=== PATIENT | male | born 1940 | race Caucasian/White ===

== ENCOUNTER 2016-05-27 11:48 | Observation (INO) | payer MEDICARE ==
[2016-05-27] VITALS (9 sets, daily range): BP systolic 105–151; BP diastolic 55–78; PULSE 67–92; RESP 18–20; TEMP 97.4–98.1; O2SAT 93–98
[~2016-05-27] VITALS: Ht 177.8 cm; Wt 88.0 kg
[~2016-05-27 11:48] MED LIST: ASPI81TA82 PO; CLOP75TA PO; COZA50TA PO; CRES10TA PO; EZET10 PO; FURO40TA PO; LASI20TA PO; METO50CR PO; NITR0.4D2 TD; POTA-267 PO; POTA10TA2 PO; RANE1000 PO; SPIR25TA PO
[2016-05-27] MEDS ORDERED: SODIUM CHLOR 0.9% 1000 ML INJ 1,000 ML IV ONE (12:08)
[2016-05-27] MEDS ORDERED: ASPIRIN 81 MG CHEW TAB PO STA (12:08)
[2016-05-27] MEDS ORDERED: SODIUM CHLORIDE 0.9% FLUSH 5 ML FLUSH IVF PRN (12:15)
--- NOTE | 2016-05-27 12:18 | PD ---
HPI Chief Complaint: Cardiac Complaint Time Seen by Provider: 11:57 Travel History International Travel<30 days: No Contact w/Intl Traveler<30days: No History of Present Illness HPI Patient is a 76-year-old male with history of coronary disease, history of triple bypass surgery greater than 30 years ago as well as 5 coronary stents placed, presents to emergency room with complaints of syncopal episode. Patient reports that he woke up this morning and felt fine, reports he had his breakfast and his coffee, reports that all of a sudden, he felt a pain to his chest and felt light headed and dizzy and reports that the next thing he remembers is that he was on the floor,. Patient thinks that his AICD may have gone off, patient is not sure. Patient reports that he got up from the floor and went to his neighbor's house and asked her to call for help. Patient has a [employer] AICD model no. [id number], serial number [id number] Patient's behavior specialist is Dr. Patt Roblse MD with [facility] Past Medical History Cardiac Catheterization: Yes High Cholesterol: Yes Congestive Heart Failure: Yes Coronary Artery Disease: Yes Hypertension: Yes Myocardial Infarction: Yes Past Surgical History AICD: Yes Cardiac Surgery: Yes (PACEMAKER/DEFIB) Coronary Artery Bypass Graft: Yes (TRIPLE) Coronary Stent: Yes (5 STENTS) Pacemaker: Yes Social History Alcohol Use: Yes (2-3 GLASSES OF WINE WEEK AND 1 MIXED DRINK) Tobacco Use: No Substance Use: No Allergies-Medications (Allergen,Severity, Reaction): Coded Allergies: No Known Allergies (Unverified , 07/08/13) Patient is allergic to a drug that 'starts with an S' Reported Meds & Prescriptions Reported Meds & Active Scripts Active Lasix (Furosemide) 20 Mg Tab 1 Tab PO BID Reported Crestor (Rosuvastatin Calcium) 10 Mg Tab 10 Mg PO HS Furosemide 40 Mg Tab 40 Mg PO DAILY Potassium Chloride Er (Potassium Chloride) 10 Meq Tab 10 Meq PO DAILY Klor-Con 10 (Potassium Chloride) 10 Meq Tab 10 Meq PO DAILY PRN Spironolactone 25 Mg Tab 12.5 Mg PO DAILY Ranexa (Ranolazine) 1,000 Mg Tab 1,000 Mg PO Q12 Cozaar (Losartan Potassium) 50 Mg Tab 25 Mg PO DAILY Clopidogrel (Clopidogrel Bisulfate) 75 Mg Tab 75 Mg PO DAILY Metoprolol Succinate Er (Metoprolol Succinate) 50 Mg Tab 50 Mg PO DAILY Zetia (Ezetimibe) 10 Mg Tab 10 Mg PO DAILY Nitroglycerin Transdermal (Nitroglycerin) 0.4 Mg/Hr Dis 0.2 Mg TD DAILY Aspir-81 (Aspirin) 81 Mg Tab 81 Mg PO DAILY Review of Systems General / Constitutional: No: Fever Eyes: No: Visual changes HENT: No: Headaches Cardiovascular: Positive: Chest Pain or Discomfort, Syncope Respiratory: No: Shortness of Breath Gastrointestinal: No: Abdominal Pain Genitourinary: No: Dysuria Musculoskeletal: No: Pain Skin: No Rash Neurologic: Positive: Dizziness, No: Weakness Psychiatric: No: Depression Endocrine: No: Polydipsia Hematologic/Lymphatic: No: Easy Bruising Physical Exam Narrative GENERAL: mild distress SKIN: Warm and dry. HEAD: Patient with contusion to forehead. Normocephalic. EYES: Pupils equal and round. No scleral icterus. No injection or drainage. ENT: No nasal bleeding or discharge. Mucous membranes pink and moist. NECK: Trachea midline. No JVD. CARDIOVASCULAR: Regular rate and rhythm. 3/6 systolic murmur RESPIRATORY: No accessory muscle use. Clear to auscultation. Breath sounds equal bilaterally. GASTROINTESTINAL: Abdomen soft, non-tender, nondistended. Hepatic and splenic margins not palpable. MUSCULOSKELETAL: No obvious deformities. No clubbing. No cyanosis. No edema. NEUROLOGICAL: Awake and alert. No obvious cranial nerve deficits. Motor grossly within normal limits. Normal speech. PSYCHIATRIC: Appropriate mood and affect; insight and judgment normal. Data Data Last Documented VS Vital Signs Date Time Temp Pulse Resp B/P Pulse Ox O2 Delivery O2 Flow Rate FiO2 05/27/16 12:19 98 Nasal Cannula 2.00 05/27/16 12:13 85 18 05/27/16 12:05 98.1 134/75 Orders Electrocardiogram (05/27/16 ) Troponin I (05/27/16 12:08) Ckmb (Isoenzyme) Profile (05/27/16 12:08) Complete Blood Count With Diff (05/27/16 12:08) I-Stat Profile (05/27/16 12:08) I-Stat Creatinine (05/27/16 12:08) Calcium (05/27/16 12:08) Magnesium (Mg) (05/27/16 12:08) Prothrombin Time / Inr (Pt) (05/27/16 12:08) Act Partial Throm Time (Ptt) (05/27/16 12:08) B-Type Natriuretic Peptide (05/27/16 12:08) Chest, Single Ap (05/27/16 12:08) Electrocardiogram (05/27/16 12:08) Oxygen Administration (05/27/16 12:08) Iv Access Insert/Monitor (05/27/16 12:08) Oximetry (05/27/16 12:08) Sodium Chlor 0.9% 1000 Ml Inj (Ns 1000 M (05/27/16 12:08) Sodium Chloride 0.9% Flush (Ns Flush) (05/27/16 12:15) Aspirin Chew (Aspirin Chew) (05/27/16 12:08) Ct Brain W/O Iv Contrast(Rout) (05/27/16 ) Heparin-Ns/Pf Inj (Heparin-Ns/Pf Inj) (05/27/16 12:21) CKMB (05/27/16 12:12) CKMB% (05/27/16 12:12) Labs Laboratory Tests Test 05/27/16 12:12 White Blood Count 9.2 TH/MM3 Red Blood Count 3.97 MIL/MM3 Hemoglobin 12.5 GM/DL Bedside Hemoglobin 11.9 G/DL Hematocrit 35.5 % Bedside Hematocrit 35.0 % Mean Corpuscular Volume 89.6 FL Mean Corpuscular Hemoglobin 31.6 PG Mean Corpuscular Hemoglobin 35.3 % Concent Red Cell Distribution Width 14.0 % Platelet Count 228 TH/MM3 Mean Platelet Volume 8.6 FL Neutrophils (%) (Auto) 70.8 % Lymphocytes (%) (Auto) 22.2 % Monocytes (%) (Auto) 4.7 % Eosinophils (%) (Auto) 1.7 % Basophils (%) (Auto) 0.6 % Neutrophils # (Auto) 6.5 TH/MM3 Lymphocytes # (Auto) 2.0 TH/MM3 Monocytes # (Auto) 0.4 TH/MM3 Eosinophils # (Auto) 0.2 TH/MM3 Basophils # (Auto) 0.1 TH/MM3 CBC Comment AUTO DIFF Differential Total Cells 100 Counted Neutrophils % (Manual) 62 % Band Neutrophils % 2 % Lymphocytes % 25 % Monocytes % 9 % Eosinophils % 1 % Neutrophils # (Manual) 6.0 TH/MM3 Metamyelocytes 1 % Differential Comment FINAL DIFF MANUAL Platelet Estimate NORMAL Platelet Morphology Comment NORMAL Red Cell Morphology Comment NORMAL Prothrombin Time 23.2 SEC Prothromb Time International 2.0 RATIO Ratio Activated Partial 32.3 SEC Thromboplast Time Bedside Sodium 137 MMOL/L Bedside Potassium 4.3 MMOL/L Bedside Chloride 100 MMOL/L Bedside Blood Urea Nitrogen 20 MG/DL Bedside Creatinine 1.0 MG/DL Bedside Glucose 128 MG/DL Calcium Level 9.0 MG/DL Magnesium Level 2.5 MG/DL Total Creatine Kinase 146 U/L Creatine Kinase MB 1.6 NG/ML Troponin I 0.07 NG/ML B-Type Natriuretic Peptide 139 PG/ML MDM Medical Decision Making Medical Screen Exam Complete: Yes Emergency Medical Condition: Yes Interpretation(s) ekg at 1203: paced at 88bpm Differential Diagnosis ACS, unstable angina, electrolyte abnormality, intracranial hemorrhage, pneumothorax Narrative Course Pt's son phone number: Larry Ga: [phone] Patient is a 76-year-old male who presents to emergency room with syncopal episode. Patient reports that he was at home today, reports that he felt of pain to his chest and felt light headed and dizzy and then "passed out." When patient awoken, pt walked to his neighbors home and she brought him to ER. Pt with concerning story for STEMI - EKG paced but with ST seg elevation II, III , AVF, and Lateral leads, STEMI alert called overhead. Discussed case with Dr. Banks, does not think that this is a STEMI, request call to patients behavior specialist. Case was reviewed with pt's behavior specialist, does not think pt is having a stemi, pt currently asymptomatic. Plan to perform cardiac workup for patient and admit to medicine service. Pt's behavior specialist will have his partner see pt as consult case reviewed with dr ruiz who accepts pt to service Diagnosis Primary Impression: Syncope and collapse Additional Impression: fall on coumadin Jody Boyce DO May 27, 2016 12:18
[2016-05-27] MEDS ORDERED: HEPARIN-NS/PF INJ 500 ML ONE (12:21)
[2016-05-27 12:28] LABS: I-STAT POTASSIUM 4.3 MMOL/L (3.5-4.9); I-STAT SODIUM 137 MMOL/L (138-146)
[2016-05-27 12:29] LABS: AUTOMATED NEUTROPHIL # 6.5 TH/MM3 (1.8-7.7); BASOPHIL # 0.1 TH/MM3 (0-0.2); BASOPHIL % 0.6 % (0.0-2.0); EOSINOPHIL # 0.2 TH/MM3 (0-0.4); EOSINOPHIL % 1.7 % (0.0-4.0); HEMATOCRIT 35.5 % (39.0-51.0); LYMPH % 22.2 % (9.0-44.0); MEAN CELL VOLUME 89.6 FL (80.0-100.0); MEAN CORPUSCULAR HEMOGLOBIN 31.6 PG (27.0-34.0); MEAN CORPUSCULAR HGB CONC 35.3 % (32.0-36.0); MONO % 4.7 % (0.0-8.0); NEUT % 70.8 % (16.0-70.0); PLATELET COUNT 228 TH/MM3 (150-450); RED BLOOD COUNT 3.97 MIL/MM3 (4.50-5.90); WHITE BLOOD COUNT 9.2 TH/MM3 (4.0-11.0)
--- NOTE | 2016-05-27 12:29 | RADRPT ---
EXAM DATE/TIME: 05/27/2016 12:14 [facility] COMPARISON: CHEST SINGLE AP, July 08, 2013, 10:46. INDICATIONS : Stemi alert. MEDICAL HISTORY : Hypertension. Congestive heart failure. Myocardial infarction. CAD. SURGICAL HISTORY : Pacemaker. CABG. 5 Stents. ENCOUNTER: Initial ACUITY: 1 day PAIN SCORE: Non-responsive. LOCATION: Bilateral chest FINDINGS: Pacemaker overlies left hemithorax with evidence of prior median sternotomy cardiac surgery and left ventricular cardiomegaly with atherosclerotic changes aorta which appears to be compensated. Vascular ity is distinct with no acute cardiopulmonary process. CONCLUSION: No acute disease. Adrián Mccollum MD on May 27, 2016 at 12:27 Board Certified Radiologist. This report was verified electronically.
[2016-05-27 12:38] LABS: HEMO FLAGS AUTO DIFF
[2016-05-27 12:39] LABS: APTT (PATIENT) 32.3 SEC (24.3-30.1); PROTHROMBIN TIME - PATIENT 23.2 SEC (9.8-11.6)
[2016-05-27 12:54] LABS: CREATINE KINASE 146 U/L (39-308); MAGNESIUM 2.5 MG/DL (1.5-2.5)
--- NOTE | 2016-05-27 13:06 | RADRPT ---
EXAM DATE/TIME: 05/27/2016 12:52 [facility] COMPARISON: No previous studies available for comparison. INDICATIONS : Syncope. RADIATION DOSE: 56.35 CTDIvol (mGy) MEDICAL HISTORY : Hypertension. SURGICAL HISTORY : None. ENCOUNTER: Initial ACUITY: 1 day PAIN SCALE: 2/10 LOCATION: cranial TECHNIQUE: Multiple contiguous axial images were obtained of the head. Using automated exposure control and adj ustment of the mA and/or kV according to patient size, radiation dose was kept as low as reasonably a chievable to obtain optimal diagnostic quality images. FINDINGS: CEREBRUM: The ventricles are normal for age. No evidence of midline shift, mass lesion, hemorrhage or acute in farction. No extra-axial fluid collections are seen. POSTERIOR FOSSA: The cerebellum and brainstem are intact. The 4th ventricle is midline. The cerebellopontine angle i s unremarkable. Minimal age-appropriate microvascular ischemic deep white matter demyelinization. EXTRACRANIAL: The visualized portion of the orbits is intact. Vascular calcifications of the internal carotid sipho n and vertebral arteries at the foramen. SKULL: The calvaria is intact. No evidence of skull fracture. CONCLUSION: Normal examination for a patient of this age. Adrián Mccollum MD on May 27, 2016 at 13:03 Board Certified Radiologist. This report was verified electronically.
[2016-05-27 13:07] LABS: CKMB 1.6 NG/ML (0.5-3.6)
[2016-05-27 13:11] LABS: BANDS 2 % (0-6); EOSINOPHILS 1 % (0-4); METAMYELOCYTES 1 % (0-1); POLYS (SEG NEUTROPHILS) 62 % (16-70); WBC DIFF SAMPLE 100
[2016-05-27 13:12] LABS: PLATELET ESTIMATE SMEAR NORMAL (NORMAL); PLATELET MORPHOLOGY NORMAL (NORMAL)
[2016-05-27 13:13] LABS: SCAN/DIFF FINAL DIFF MANUAL
[2016-05-27] MEDS ORDERED: ENALAPRILAT 1.25 MG/ML VIAL IV PUSH PRN (14:45)
[2016-05-27] MEDS ORDERED: RESP: ALBUTEROL 2.5 MG/IPRATROPIUM 0.5 MG NEB (PRN) NEB (14:45)
[2016-05-27] MEDS ORDERED: ONDANSETRON HCL 4 MG/2 ML VIAL IVP PRN (14:45)
[2016-05-27] MEDS ORDERED: SENNOSIDES 8.6 MG TAB PO PRN (14:45)
[2016-05-27] MEDS ORDERED: SODIUM CHLORIDE 0.9% FLUSH 5 ML FLUSH FLUSH PRN (14:45)
[2016-05-27] MEDS ORDERED: NALOXONE HCL 0.4 MG/ML AMP IV PRN (14:45)
[2016-05-27] MEDS ORDERED: ACETAMINOPHEN 325 MG TAB PO PRN ×2 (14:45)
[2016-05-27] MEDS ORDERED: RANE1000 PO (14:52)
[2016-05-27] MEDS ORDERED: FURO1TAB60 PO (14:52)
[2016-05-27] MEDS ORDERED: POTA10CA PO (14:56)
[2016-05-27] MEDS ORDERED: METO50TA PO (14:56)
[2016-05-27] MEDS ORDERED: ROSU10 PO (14:56)
[2016-05-27] MEDS ORDERED: ZETI10TA5 PO (14:56)
[2016-05-27] MEDS ORDERED: WARF4TAB52 PO (14:56)
[2016-05-27] MEDS ORDERED: COZA25TA PO (14:56)
[2016-05-27] MEDS ORDERED: ASPI81CH CHEW (14:56)
[2016-05-27] MEDS ORDERED: SPIR25TA PO (14:56)
[2016-05-27] MEDS ORDERED: WARF-18 PO (14:57)
--- NOTE | 2016-05-27 15:01 | HHI.HP ---
[facility] Unknown Admission Diagnosis Syncope Diagnoses: (1) Syncope and collapse Chief Complaint: Syncope Travel History International Travel<30 Days: No Contact w/Intl Traveler <30 Da: No Traveled to Known Affected Are: No History of Present Illness 76 year-old male with a past medical history of CAD, triple bypass was brought to the emergency department for evaluation of a syncopal episode with collapse which occurred today and lasted possible 5 minutes. Patient states, he had no complaint early this morning when workup, had his breakfast and coffee however as was walking through the TV he felt dizzy lightheadedness and passed out. Patient isn't sure if his AICD when off. Then when patient got off the floor he walked was neighbor's house who called for help. He has no chest pain Review of Systems Other Other 12 systems reviewed and are negative except for the one mentioned in the history of present illness Past Family Social History Past Medical History Cardiac Catheterization: Yes High Cholesterol: Yes Congestive Heart Failure: Yes Coronary Artery Disease: Yes Hypertension: Yes Myocardial Infarction: Yes Past Surgical History AICD: Yes Cardiac Surgery: Yes (PACEMAKER/DEFIB) Coronary Artery Bypass Graft: Yes (TRIPLE) Coronary Stent: Yes (5 STENTS) Pacemaker: Yes Reported Medications Crestor (Rosuvastatin Calcium) 10 Mg Tab 10 Mg PO HS Furosemide 40 Mg Tab 40 Mg PO DAILY Potassium Chloride Er (Potassium Chloride) 10 Meq Tab 10 Meq PO DAILY Klor-Con 10 (Potassium Chloride) 10 Meq Tab 10 Meq PO DAILY PRN Spironolactone 25 Mg Tab 12.5 Mg PO DAILY Ranexa (Ranolazine) 1,000 Mg Tab 1,000 Mg PO Q12 Cozaar (Losartan Potassium) 50 Mg Tab 25 Mg PO DAILY Clopidogrel (Clopidogrel Bisulfate) 75 Mg Tab 75 Mg PO DAILY Metoprolol Succinate Er (Metoprolol Succinate) 50 Mg Tab 50 Mg PO DAILY Zetia (Ezetimibe) 10 Mg Tab 10 Mg PO DAILY Nitroglycerin Transdermal (Nitroglycerin) 0.4 Mg/Hr Dis 0.2 Mg TD DAILY Aspir-81 (Aspirin) 81 Mg Tab 81 Mg PO DAILY Allergies: Coded Allergies: No Known Allergies (Unverified , 07/08/13) Patient is allergic to a drug that 'starts with an S' Family History Strong family history positive for diabetes Social History Alcohol Use: Yes (2-3 GLASSES OF WINE WEEK AND 1 MIXED DRINK) Tobacco Use: No Substance Use: No Physical Exam Vital Signs Vital Signs Date Time Temp Pulse Resp B/P Pulse Ox O2 Delivery O2 Flow Rate FiO2 05/27/16 12:19 98 Nasal Cannula 2.00 05/27/16 12:13 85 18 05/27/16 12:13 Nasal Cannula 2 05/27/16 12:06 99 Nasal Cannula 2 05/27/16 12:05 98.1 83 18 134/75 96 05/27/16 11:51 97.4 92 20 151/78 98 Room Air Physical Exam GENERAL: This is a well-nourished, well-developed patient, in no apparent distress. SKIN: No rashes, ecchymoses or lesions. Cool and dry. HEAD: Atraumatic. Normocephalic. No temporal or scalp tenderness. EYES: Pupils equal round and reactive. Extraocular motions intact. No scleral icterus. No injection or drainage. ENT: Nose without bleeding, purulent drainage or septal hematoma. Throat without erythema, tonsillar hypertrophy or exudate. Uvula midline. Airway patent. NECK: Trachea midline. No JVD or lymphadenopathy. Supple, nontender, no meningeal signs. CARDIOVASCULAR: Regular rate and rhythm without murmurs, gallops, or rubs. RESPIRATORY: Clear to auscultation. Breath sounds equal bilaterally. No wheezes , rales, or rhonchi. GASTROINTESTINAL: Abdomen soft, non-tender, nondistended. No hepato-splenomegaly , or palpable masses. No guarding. MUSCULOSKELETAL: Extremities without clubbing, cyanosis, or edema. No joint tenderness, effusion, or edema noted. No calf tenderness. Negative Homans sign bilaterally. NEUROLOGICAL: Awake and alert. Cranial nerves II through XII intact. Motor and sensory grossly within normal limits. Five out of 5 muscle strength in all muscle groups. Normal speech. Laboratory Laboratory Tests Test 05/27/16 12:12 White Blood Count 9.2 Red Blood Count 3.97 Hemoglobin 12.5 Bedside Hemoglobin 11.9 Hematocrit 35.5 Bedside Hematocrit 35.0 Mean Corpuscular Volume 89.6 Mean Corpuscular Hemoglobin 31.6 Mean Corpuscular Hemoglobin 35.3 Concent Red Cell Distribution Width 14.0 Platelet Count 228 Mean Platelet Volume 8.6 Neutrophils (%) (Auto) 70.8 Lymphocytes (%) (Auto) 22.2 Monocytes (%) (Auto) 4.7 Eosinophils (%) (Auto) 1.7 Basophils (%) (Auto) 0.6 Neutrophils # (Auto) 6.5 Lymphocytes # (Auto) 2.0 Monocytes # (Auto) 0.4 Eosinophils # (Auto) 0.2 Basophils # (Auto) 0.1 CBC Comment AUTO DIFF Differential Total Cells 100 Counted Neutrophils % (Manual) 62 Band Neutrophils % 2 Lymphocytes % 25 Monocytes % 9 Eosinophils % 1 Neutrophils # (Manual) 6.0 Metamyelocytes 1 Differential Comment FINAL DIFF MANUAL Platelet Estimate NORMAL Platelet Morphology Comment NORMAL Red Cell Morphology Comment NORMAL Prothrombin Time 23.2 Prothromb Time International 2.0 Ratio Activated Partial 32.3 Thromboplast Time Bedside Sodium 137 Bedside Potassium 4.3 Bedside Chloride 100 Bedside Blood Urea Nitrogen 20 Bedside Creatinine 1.0 Bedside Glucose 128 Calcium Level 9.0 Magnesium Level 2.5 Total Creatine Kinase 146 Creatine Kinase MB 1.6 Troponin I 0.07 B-Type Natriuretic Peptide 139 Result Diagram: 05/27/16 1212 Imaging Last Impressions Chest X-Ray 05/27/16 1208 Signed Impressions: Service Date/Time: Friday, May 27, 2016 12:14 - CONCLUSION: No acute disease. Adrián Mccollum MD Head CT 05/27/16 0000 Signed Impressions: Service Date/Time: Friday, May 27, 2016 12:52 - CONCLUSION: Normal examination for a patient of this age. Adrián Mccollum MD Assessment and Plan Problem List: (1) Syncope and collapse ICD Code: R55 Status: Acute Assessment and Plan 76-year-old male with Syncope and collapse: We will rule out ACS per protocol with serial cardiac enzyme and EKGs. Check EEG to rule out any seizure activity. Head CT noted and review without any acute finding and checks x-ray negative for any acute pulmonary disease. Check 2-D echo as well as carotid ultrasound bilaterally. Orthostatic BP.Patient has a [employer] AICD model no. [id number], serial number [id number] and will have it interrogated. Cardiology has been consulted. PT consult to treat and eval. Other chronic medical conditions: Resume outpatient medications History of atrial fibrillation: Currently rate control, resume Coumadin as well as beta bud and telemetry monitoring. History of CHF unknown type: No current exacerbation, chest x-ray noted without any pulmonary congestion despite mildly elevated ENP, resume outpatient medications. DVT prophylaxis: Coumadin Code Status Full code Discussed Condition With Patient, ED physician Benedict Rodriguez MD May 27, 2016 15:00
[2016-05-27] MEDS ORDERED: WARFARIN SOD 2.5 MG TAB PO SCH (17:15)
[2016-05-27] MEDS ORDERED: PILL SPLITTER OTHER PRN (17:45)
--- NOTE | 2016-05-27 20:12 | MB ---
cc: IDALIA SAUL M.D., ASHRAF S. M.D. DATE OF CONSULTATION 05/27/16 REASON FOR CONSULTATION Syncope. HISTORY OF PRESENT ILLNESS The patient is a 76-year-old white male with multiple medical problems including ischemic cardiomyopathy status post biventricular ICD placement who presented after sustaining a syncopal episode for the first time ever. The patient states that he got up in his usual state of health, went to the kitchen, drank a cup of coffee and all of a sudden felt dizzy and fell to the floor hitting his head on the right side. The patient does not know exactly how long he was down but he estimates it was around seven minutes. When he came to he felt some tingling in his chest but no significant angina or shortness of breath. It took him a few minutes to get up and when he did he was able to walk to his neighbor's house who called a nurse who lives in the complex and decided to call and bring the patient to the emergency room for further evaluation. Upon arrival he was alert and oriented x3 with no acute cardiopulmonary distress. PAST MEDICAL HISTORY Severe ischemic cardiomyopathy with an ejection fraction of 25% status post biventricular AICD. AICD was found to have normal function as per evaluation last February. Paroxysmal atrial fibrillation, moderate to severe mitral regurgitation, not a candidate for surgical intervention. Hyperlipidemia, carotid artery stenosis status post stent with a recent carotid ultrasound showing no significant stenosis. Vertigo, overweight and hypertension. SOCIAL HISTORY The patient has four alcoholic beverages per week and does not smoke. He is a . ALLERGIES He has no reported allergies. MEDICATIONS 1. Digoxin 250 micrograms daily. 2. Losartan 12.5 milligrams daily. 3. Metoprolol XL 50 milligrams daily. 4. Coumadin as directed. 5. Aspirin 81 milligrams daily. 6. Crestor 40 milligrams daily. 7. Lasix 40 milligrams daily. 8. Ranexa 1 gram twice a day. 9. Aldactone 25 milligrams daily. 10. Zetia 10 milligrams daily. PAST SURGERIES CABG, AICD placement. FAMILY HISTORY Strongly positive for diabetes. REVIEW OF SYSTEMS Review of systems as stated in the history of present illness. PHYSICAL EXAMINATION GENERAL: On physical exam the patient is in no acute distress. VITAL SIGNS: Blood pressure 130/80 mmHg, heart rate 85 beats per minute, saturation 98%. HEENT: Head and neck without JVD or carotid bruits. He has got a bruise in the right frontal area. LUNGS: Lungs are clear to auscultation. HEART: Normal S1-S2 with a 3/6 apical systolic murmur. ABDOMEN: Benign without visceromegaly or bruits. EXTREMITIES: Without edema. NEUROLOGIC: Exam without focal motor deficits. DATA White count 9.2, hemoglobin 12.5, platelet count 228, glucose 128, sodium 137, potassium 4.3, BUN 20, creatinine 1, troponin 0.07. BNP 139. INR was 2. Electrocardiogram showed paced ventricular rhythm. Chest x-ray with no acute abnormalities. CT of the brain with no acute abnormality and changes compatible with the patient's age. ASSESSMENT A 76-year-old white male with significant ischemic cardiomyopathy status post syncopal episode. The first possible cause would be arrhythmia. The patient will have his AICD interrogated. If the patient had an appropriate shock he could potentially be discharged and continue his current medications. I will leave that up to Dr. Robles if he wants to start the patient on antiarrhythmic therapy pending results of AICD interrogation. Currently, he is hemodynamically stable and not complaining of chest discomfort. I will check a second troponin to see if there is any significant jump; other than that will keep him on observation overnight pending results of AICD interrogation. MD KEVIN Adams/ARABELLA /6:05 PM /7:59 PM HERNESTO
[2016-05-27] MEDS: SODIUM CHLORIDE 0.9% FLUSH 5 ML FLUSH FLUSH SCH (20:32)
[2016-05-27] MEDS: RANOLAZINE 500 MG EXTENDED RELEASE TAB PO SCH (20:32)
[2016-05-28] VITALS (8 sets, daily range): BP systolic 92–127; BP diastolic 55–73; PULSE 74–86; RESP 16–20; TEMP 97.9–98.6; O2SAT 95–99
[2016-05-28 06:26] LABS: AUTOMATED NEUTROPHIL # 4.7 TH/MM3 (1.8-7.7); BASOPHIL % 0.4 % (0.0-2.0); EOSINOPHIL # 0.2 TH/MM3 (0-0.4); EOSINOPHIL % 2.2 % (0.0-4.0); HEMATOCRIT 31.9 % (39.0-51.0); HEMO FLAGS DIFF FINAL; LYMPH % 27.9 % (9.0-44.0); MEAN CELL VOLUME 90.2 FL (80.0-100.0); MEAN CORPUSCULAR HEMOGLOBIN 31.1 PG (27.0-34.0); MEAN CORPUSCULAR HGB CONC 34.5 % (32.0-36.0); MONO % 4.9 % (0.0-8.0); NEUT % 64.6 % (16.0-70.0); PLATELET COUNT 164 TH/MM3 (150-450); RED BLOOD COUNT 3.53 MIL/MM3 (4.50-5.90); RED CELL DISTRIBUTION WIDTH 14.4 % (11.6-17.2); WHITE BLOOD COUNT 7.2 TH/MM3 (4.0-11.0)
[2016-05-28 06:38] LABS: INTERNATIONAL NORMALIZED RATIO 2.5 RATIO; PROTHROMBIN TIME - PATIENT 28.5 SEC (9.8-11.6)
[2016-05-28 07:03] LABS: ALT (GPT) 20 U/L (12-78); ANION GAP 8 MEQ/L (5-15); AST (GOT) 11 U/L (15-37); BICARBONATE 24.8 MEQ/L (21.0-32.0); BLOOD UREA NITROGEN 16 MG/DL (7-18); CHLORIDE 105 MEQ/L (98-107); GLOMERULAR FILTRATION RATE 66 ML/MIN (>89); POTASSIUM 4.3 MEQ/L (3.5-5.1); SODIUM (NA) 138 MEQ/L (136-145)
[2016-05-28 07:06] LABS: ALKALINE PHOSPHATASE 82 U/L (45-117); TOTAL BILIRUBIN ADULT 0.4 MG/DL (0.2-1.0)
[2016-05-28] MEDS: LOSARTAN 25 MG TAB PO SCH (08:24)
--- NOTE | 2016-05-28 08:25 | HHI.PR ---
Subjective Remarks Follow up syncope and collapse 05/28/16-patient seen and examined; no report of any syncopal episode. AICD was interrogated yesterday Objective Vitals Vital Signs Date Time Temp Pulse Resp B/P Pulse Ox O2 Delivery O2 Flow Rate FiO2 05/28/16 07:19 98.0 76 18 92/55 96 05/28/16 04:05 98.6 16 108/58 95 05/28/16 00:24 98.2 77 16 105/59 97 05/27/16 19:30 98.0 82 20 112/56 96 05/27/16 19:29 93 05/27/16 17:07 116/57 05/27/16 17:07 110/55 05/27/16 17:07 113/57 05/27/16 16:38 98.0 67 18 105/59 95 05/27/16 16:07 97 18 145/72 97 Nasal Cannula 2 05/27/16 12:19 98 Nasal Cannula 2.00 05/27/16 12:13 85 18 05/27/16 12:13 Nasal Cannula 2 05/27/16 12:06 99 Nasal Cannula 2 05/27/16 12:05 98.1 83 18 134/75 96 05/27/16 11:51 97.4 92 20 151/78 98 Room Air I/O 05/27/16 05/27/16 05/27/16 05/28/16 05/28/16 05/28/16 07:00 15:00 23:00 07:00 15:00 23:00 Output Total 550 ml Balance -550 ml Output Urine Total 550 ml Result Diagram: 05/28/16 0547 05/28/16 0547 Imaging Last Impressions Chest X-Ray 05/27/16 1208 Signed Impressions: Service Date/Time: Friday, May 27, 2016 12:14 - CONCLUSION: No acute disease. Adrián Mccollum MD Head CT 05/27/16 0000 Signed Impressions: Service Date/Time: Friday, May 27, 2016 12:52 - CONCLUSION: Normal examination for a patient of this age. Adrián Mccollum MD Objective Remarks GENERAL: NAD SKIN: Warm and dry. HEAD: Normocephalic. EYES: No scleral icterus. No injection or drainage. NECK: Supple, trachea midline. No JVD or lymphadenopathy. CARDIOVASCULAR: Regular rate and rhythm without murmurs, gallops, or rubs. RESPIRATORY: Breath sounds equal bilaterally. No accessory muscle use. GASTROINTESTINAL: Abdomen soft, non-tender, nondistended. MUSCULOSKELETAL: No cyanosis, or edema. BACK: Nontender without obvious deformity. No CVA tenderness. A/P Problem List: (1) Syncope and collapse ICD Code: R55 Status: Acute Assessment and Plan 76-year-old male with Syncope and collapse: We will rule out ACS per protocol with serial cardiac enzyme and EKGs. Check EEG to rule out any seizure activity. Head CT without any acute finding and checks x-ray negative for any acute pulmonary disease. 2 -D echo as well as carotid ultrasound bilaterally pending. Orthostatic BP checked.Patient has a [employer] AICD model no. [id number], serial number [id number] and it was interrogated. Cardiology has been consulted and appreciated. PT consult to treat and eval. Other chronic medical conditions: continue with outpatient medications History of atrial fibrillation: Currently rate control, on Coumadin as well as beta bud and telemetry monitoring. History of CHF unknown type: No current exacerbation, chest x-ray noted without any pulmonary congestion despite mildly elevated ENP, continue outpatient medications. DVT prophylaxis: CoumBenedict Alan MD May 28, 2016 08:25
[2016-05-28] MEDS: POTASSIUM CHLORIDE 10 MEQ CAP PO SCH (08:27)
[2016-05-28] MEDS: ASPIRIN 81 MG CHEW TAB CHEW SCH (08:27)
[2016-05-28] MEDS: ATORVASTATIN 20 MG TAB PO SCH (08:27)
[2016-05-28] MEDS: SODIUM CHLORIDE 0.9% FLUSH 5 ML FLUSH FLUSH SCH ×2 (08:29→20:13)
[2016-05-28] MEDS ORDERED: METOPROLOL TARTRATE 50 MG TAB PO SCH (09:00)
[2016-05-28] MEDS ORDERED: PNEUMOCOCCAL POLYVALENT INJ 25 MCG/0.5 ML SYR IM ONE (10:00)
[2016-05-28] MEDS ORDERED: INFLUENZA VIRUS VACCINE (QUADRIVALENT) 0.5 ML SYR IM ONE (10:00)
[2016-05-28] MEDS: FUROSEMIDE 40 MG TAB PO SCH (11:34)
[2016-05-28] MEDS: RANOLAZINE 500 MG EXTENDED RELEASE TAB PO SCH ×2 (11:34→20:13)
[2016-05-28] MEDS: SPIRONOLACTONE 25 MG TAB PO SCH (11:35)
[2016-05-28] MEDS: EZETIMIBE 10 MG TAB PO SCH (11:39)
--- NOTE | 2016-05-28 13:37 | EKG ---
Date Performed: 05/28/2016 Time Performed: 01:10:47 PTAGE: 76 years EKG: ELECTRONIC VENTRICULAR PACEMAKER Since previous tracing, no significant change noted ABNORM AL RHYTHM ECG PREVIOUS TRACING : 05/27/2016 19.35 DOCTOR: Pamela Hays Interpretating Date/Time 05/28/2016 13:35:30
--- NOTE | 2016-05-28 14:48 | RADRPT ---
EXAM DATE/TIME: 05/28/2016 14:02 [facility] COMPARISON: No previous studies available for comparison. INDICATIONS : Syncope. MEDICAL HISTORY : Hypertension. Hypercholesterolemia. Congestive heart failure. CAD. SURGICAL HISTORY : CABG. Coronary stent. Cardiac catheterization. Pacemaker. ENCOUNTER: Initial ACUITY: 1 day PAIN SCORE: 0/10 LOCATION: Bilateral neck PEAK SYSTOLIC VELOCITIES (cm/sec): ICA/CCA RATIO: Right: 3.7 Left: 1.4 ICA: Right: 205 Left: 135 CCA: Right: 55 Left: 98 ECA: Right: 188 Left: OCCLUDED VERTEBRAL: Right: 38 antegrade Left: 40 antegrade Elevated flow velocities and ICA/CCA ratios have been found to correlate with increased degrees of vessel stenosis, calculated as percentage of diameter relative to a normal segment of distal ICA/CCA FINDINGS: There is antegrade flow in the bilateral vertebral arteries. There is elevated velocity in the right internal carotid artery an elevated ratio is noted with an estimated 50-69% stenosis. Elevated veloci ty in the external carotid artery is also noted. On the left there is occluded left external carotid artery. There is moderate atherosclerotic disease of the internal carotid artery with mild elevated v elocity which would correspond to a 50-69% stenosis. CONCLUSION: Moderate to severe atherosclerotic disease with occluded left external carotid artery. Consider CTA o f the carotid arteries for further evaluation. Issa Velez MD on May 28, 2016 at 14:44 Board Certified Radiologist. This report was verified electronically.
--- NOTE | 2016-05-28 14:48 | EKG ---
Date Performed: 05/27/2016 Time Performed: 12:03:00 PTAGE: 76 years EKG: P wave synchronous pacing This EKG is not directily comparable to the prior tracing as the rhythm is now paced. The patient has evidence now of inferolateral ST segment elevation but this is n onspecific in the setting of the paced rhythm. Clinical correlation advised. PREVIOUS TRACING : 07/08/2013 11.12 DOCTOR: Pamela Hays Interpretating Date/Time 05/31/2016 13:03:42
--- NOTE | 2016-05-28 14:51 | EKG ---
Date Performed: 05/27/2016 Time Performed: 19:35:15 PTAGE: 76 years EKG: Probable P wave synchronous pacing with a short programmed OH interval. The patient does h ave an occasional conducted supraventricular beat with associated ST-T wave changes. Compared to PREVIOUS TRACING , there has been a slowing of the tracked rate in some intrinsic conduct ion, otherwise, no overt serial change. The inferolateral ST elevation persists but it is nonspecifi c with the paced ventricular complex. PREVIOUS TRACIN05/27/2016 12.03 DOCTOR: Pamela Hays Interpretating Date/Time 05/31/2016 13:03:33
--- NOTE | 2016-05-28 15:24 | EC ---
Study Study Date:05/28/2016 STUDY CONCLUSIONS SUMMARY - Left ventricle: The cavity size was normal. Wall thickness was normal. Systolic function was severely reduced by visual assessment. The estimated ejection fraction was in the range of 25% to 30%. Akinesis of the mid-distal anteroseptal, anterior, and apical myocardium. - Aortic valve: Valve area: 2.31cm^2(VTI). Valve area: 2.19cm^2 (Vmax). - Mitral valve: Mild regurgitation. - Tricuspid valve: Mild regurgitation. - Pulmonary arteries: PA peak pressure: 32mm Hg (S). If LV function is below 40, please consider prescribing an ACEI or ARB or document rationale for non-use. PROCEDURE DATA STUDY STATUS: Elective. Procedure: Transthoracic echocardiography. Image quality was good. Scanning was performed from the parasternal, apical, and subcostal acoustic windows. Study completion: The patient tolerated the procedure well. Transthoracic echocardiography. M-mode, complete 2D, complete spectral Doppler, and color Doppler. Patient status: Inpatient. CARDIAC ANATOMY LEFT VENTRICLE: The cavity size was normal. Wall thickness was normal. Systolic function was severely reduced by visual assessment. The estimated ejection fraction was in the range of 25% to 30%. Regional wall motion abnormalities: Akinesis of the mid-distal anteroseptal, anterior, and apical myocardium. AORTIC VALVE: Trileaflet; normal thickness leaflets. Doppler: Transvalvular velocity was within the normal range. There was no stenosis. No regurgitation. Valve area: 2.31cm^2(VTI). Valve area: 2.19cm^2 (Vmax). Mean gradient: 7mm Hg (S). Peak gradient: 13mm Hg (S). AORTA: Aortic root: The aortic root was mildly dilated. MITRAL VALVE: Structurally normal valve. Doppler: Transvalvular velocity was within the normal range. There was no evidence for stenosis. Mild regurgitation. Peak gradient: 3mm Hg (D). LEFT ATRIUM: The atrium was normal in size. RIGHT VENTRICLE: The cavity size was normal. Wall thickness was normal. PULMONIC VALVE: Doppler: Transvalvular velocity was within the normal range. There was no evidence for stenosis. No regurgitation. TRICUSPID VALVE: Structurally normal valve. Doppler: Transvalvular velocity was within the normal range. Mild regurgitation. PULMONARY ARTERY: The main pulmonary artery was normal-sized. Systolic pressure was within the normal range. RIGHT ATRIUM: The atrium was normal in size. PERICARDIUM: There was no pericardial effusion. SYSTEMIC VEINS: Inferior vena cava: The vessel was normal in size. BASIC MEASUREMENTS ADULT Normal Left ventricle LV internal dimension, ED, chordal level, *59.1 mm 43-52 PLAX LV internal dimension, ES, chordal level, *50.4 mm 23-38 PLAX Fractional shortening, chordal level, PLAX *15 % >29 LV posterior wall thickness, ED 13.5 mm IVS/LVPW ratio, ED 0.83 <1.3 Ventricular septum Septal thickness, ED 11.2 mm Aortic valve Leaflet separation 25 mm 15-26 Right ventricle RV internal dimension, ED, PLAX 22.3 mm 19-38 BASIC MEASUREMENTS ADULT Normal Aortic valve Leaflet separation 25 mm 15-26 Aorta Root diameter, ED *40 mm 20-37 Left atrium Anterior-posterior dimension, ES *44 mm 19-40 LA/aortic root ratio 1.1 DOPPLER MEASUREMENTS ADULT Normal Main pulmonary artery Pressure, S *32 mm Hg =30 Aortic valve Peak velocity, S 183 cm/s Mean velocity, S 122 cm/s VTI, S 36.5 cm Mean gradient, S 7 mm Hg Peak gradient, S 13 mm Hg Valve area, VTI 2.31 cm^2 Valve area, Vmax 2.19 cm^2 Regurgitant velocity, ED 365 cm/s Regurgitant deceleration 1140 cm/s^2 Regurgitant pressure half-time 934 ms Regurgitant gradient, ED 53 mm Hg Mitral valve Peak E-wave velocity 87.9 cm/s Peak A-wave velocity 72.6 cm/s Peak gradient, D 3 mm Hg Peak E/A ratio 1.2 Tricuspid valve Regurgitant peak velocity 235 cm/s Peak RV-RA gradient, S 22 mm Hg Maximal regurgitant velocity 235 cm/s Systemic veins Estimated CVP 10 mm Hg Right ventricle RV pressure, S *32 mm Hg <30 LEGEND: Mean values are shown as u=mean value. Asterisk (*) wolff values outside specified normal range. Prepared and signed by Kai Cooper [id number]
[2016-05-28] MEDS ORDERED: WARFARIN SOD 1 MG TAB PO ONE (16:00)
[2016-05-28] MEDS: AMIODARONE 200 MG TAB PO SCH (20:13)
[2016-05-28] MEDS: METOPROLOL TARTRATE 25 MG TAB PO SCH (21:00)
[2016-05-29 00:47] VITALS: BP 109/60; PULSE 78; RESP 16; TEMP 97.2; O2SAT 96
[2016-05-29 04:12] VITALS: BP 109/58; PULSE 77; RESP 18; TEMP 97.3; O2SAT 95
[2016-05-29 05:58] LABS: INTERNATIONAL NORMALIZED RATIO 2.1 RATIO; PROTHROMBIN TIME - PATIENT 23.9 SEC (9.8-11.6)
[2016-05-29 07:14] VITALS: BP 118/65; PULSE 80; RESP 18; TEMP 97.8; O2SAT 98
--- NOTE | 2016-05-29 07:37 | MG ---
cc: AVERY HERNANDEZ Sex: M [id number] INTRODUCTION: Hyperventilation not performed. The patient is a 76 year-old male with syncope, dizziness, alcohol use. MEDICATIONS: Lipitor, aspirin. DESCRIPTION: Diffuse 7 hertz slowing is seen. The recording is synchronous and symmetric. No epileptiform or seizure activity is noted. Photic stimulation was performed without significant posterior driving. The patient was noted to be asleep and snoring but did not reach stage II sleep. IMPRESSION Mild diffuse theta slowing consistent with a mild diffuse encephalopathy but no focal abnormality was noted. No seizure activity was seen. The patient was noted to snore. Sleep apnea could be considered. Clinical correlation is needed, but there was no seizure activity noted. MD RIGO Nagy/CHEO /7:18 AM /7:32 AM
[2016-05-29] MEDS: AMIODARONE 200 MG TAB PO SCH (08:20)
[2016-05-29] MEDS: POTASSIUM CHLORIDE 10 MEQ CAP PO SCH (08:20)
[2016-05-29] MEDS: FUROSEMIDE 40 MG TAB PO SCH (08:20)
[2016-05-29] MEDS: ASPIRIN 81 MG CHEW TAB CHEW SCH (08:20)
[2016-05-29] MEDS: EZETIMIBE 10 MG TAB PO SCH (08:20)
[2016-05-29] MEDS: RANOLAZINE 500 MG EXTENDED RELEASE TAB PO SCH (08:20)
[2016-05-29] MEDS: SPIRONOLACTONE 25 MG TAB PO SCH (08:20)
[2016-05-29] MEDS: METOPROLOL TARTRATE 25 MG TAB PO SCH (08:20)
[2016-05-29] MEDS: LOSARTAN 25 MG TAB PO SCH (08:20)
[2016-05-29] MEDS: SODIUM CHLORIDE 0.9% FLUSH 5 ML FLUSH FLUSH SCH (08:21)
[2016-05-29] MEDS: ATORVASTATIN 20 MG TAB PO SCH (08:21)
--- NOTE | 2016-05-29 08:21 | HHI.PR ---
Subjective Remarks Follow up syncope and collapse 05/28/16-patient seen and examined; no report of any syncopal episode. AICD was interrogated yesterday 05/29/16-patient seen and examined; stable and no complaint. Denies any chest pain. Meds adjusted by Card yesterday. abnormal Carotid US Objective Vitals Vital Signs Date Time Temp Pulse Resp B/P Pulse Ox O2 Delivery O2 Flow Rate FiO2 05/29/16 07:14 97.8 80 18 118/65 98 05/29/16 04:12 97.3 77 18 109/58 95 05/29/16 00:47 97.2 78 16 109/60 96 05/28/16 19:40 98.1 86 20 127/73 99 05/28/16 19:04 96 05/28/16 16:09 97.9 83 18 105/59 96 05/28/16 11:15 97.9 74 18 111/58 96 05/28/16 08:22 98 21 I/O 05/28/16 05/28/16 05/28/16 05/29/16 05/29/16 05/29/16 07:00 15:00 23:00 07:00 15:00 23:00 Output Total 550 ml 800 ml Balance -550 ml -800 ml Output Urine Total 550 ml 800 ml # Bowel Movements 0 Result Diagram: 05/28/16 0547 05/28/16 0547 Imaging Last Impressions Carotid Artery Ultrasound 05/28/16 0000 Signed Impressions: Service Date/Time: Saturday, May 28, 2016 14:02 - CONCLUSION: Moderate to severe atherosclerotic disease with occluded left external carotid artery. Consider CTA of the carotid arteries for further evaluation. Issa Velez MD Chest X-Ray 05/27/16 1208 Signed Impressions: Service Date/Time: Friday, May 27, 2016 12:14 - CONCLUSION: No acute disease. Adrián Mccollum MD Head CT 05/27/16 0000 Signed Impressions: Service Date/Time: Friday, May 27, 2016 12:52 - CONCLUSION: Normal examination for a patient of this age. Adrián Mccollum MD Objective Remarks GENERAL: NAD SKIN: Warm and dry. HEAD: Normocephalic. EYES: No scleral icterus. No injection or drainage. NECK: Supple, trachea midline. No JVD or lymphadenopathy. CARDIOVASCULAR: Regular rate and rhythm without murmurs, gallops, or rubs. RESPIRATORY: Breath sounds equal bilaterally. No accessory muscle use. GASTROINTESTINAL: Abdomen soft, non-tender, nondistended. MUSCULOSKELETAL: No cyanosis, or edema. BACK: Nontender without obvious deformity. No CVA tenderness. Procedures None A/P Problem List: (1) Syncope and collapse ICD Code: R55 Status: Acute Assessment and Plan 76-year-old male with Syncope and collapse: likely due to VT/VF with appropriate shock. However Carotid US with possible Left ICA 50-60% stenosis therefore will check CTA Neck today 05/29/16. Head CT without any acute finding and checks x-ray negative for any acute pulmonary disease. 2-D echo with EF 25-30%. PT consult to treat and eval. Other chronic medical conditions: continue with outpatient medications History of atrial fibrillation: Currently rate control, on Coumadin and now Amiodarone 200mg BID and Toprol XL 25mg BID History of Chronic Systolic CHF : No current exacerbation, chest x-ray noted without any pulmonary congestion despite mildly elevated ENP, continue outpatient medications. DVT prophylaxis: Coumadin Will d/c home if Neck CTA unremarkable. Benedict Rodriguez MD May 29, 2016 08:21
[2016-05-29] MEDS ORDERED: METO25TA3 PO (08:24)
[2016-05-29] MEDS ORDERED: AMIO200T PO (08:24)
[2016-05-29] MEDS ORDERED: IOHEXOL 350 MG/ML 10 ML VIAL (for RAD DIAG) IV ONE (09:20)
--- NOTE | 2016-05-29 09:51 | RADRPT ---
EXAM DATE/TIME: 05/29/2016 09:09 [facility] COMPARISON: US CAROTID ARTERIES, May 28, 2016, 14:02. INDICATIONS : Possible occlusion IV CONTRAST: 93 cc Omnipaque 350 (iohexol) IV RADIATION DOSE: 27.62 CTDIvol (mGy) MEDICAL HISTORY : Congestive hearrt failure. Hypertension. SURGICAL HISTORY : Pacemaker. CABG ENCOUNTER: Initial ACUITY: 1 day PAIN SCALE: 0/10 LOCATION: neck TECHNIQUE: Volumetric scanning was performed using a multirow detector CT scanner. The data was post processed with a variety of visualization algorithms including full-volume maximum intensity projection, multip lanar sliding thin-slab reformation, curved-planar reformation, and surface-rendering techniques. Us ing automated exposure control and adjustment of the mA and/or kV according to patient size, radiatio n dose was kept as low as reasonably achievable to obtain optimal diagnostic quality images. FINDINGS: AORTIC ARCH: There is a three-vessel origin of the great vessels from the aorta. No evidence of ostial narrowing. RIGHT CAROTID: There is a stent within the distal right common carotid artery extending into the proximal internal c arotid artery. There is a 60% stenosis by NASCET criteria at the level of the midportion of the stent LEFT CAROTID: On the left there is moderate to severe calcific plaquing at the carotid bifurcation. There is severe stenosis at the origin of the external carotid artery. There is a 45% stenosis by NASCET criteria of the proximal internal carotid artery. VERTEBRALS: There are atherosclerotic calcifications at the origin of the vertebral arteries and distally. CONCLUSION: 1. Moderate bilateral carotid artery stenoses are noted as described above. Issa Velez MD on May 29, 2016 at 9:45 Board Certified Radiologist. This report was verified electronically.
--- NOTE | 2016-05-29 10:08 | HHI.PR ---
Addendum to Inpatient Note Addendum Reason: Additional Documentation Additional Information Last Impressions Neck CTA 05/29/16 0000 Signed Impressions: Service Date/Time: Sunday, May 29, 2016 09:09 - CONCLUSION: 1. Moderate bilateral carotid artery stenoses are noted as described above. Issa Velez MD Carotid Artery Ultrasound 05/28/16 0000 Signed Impressions: Service Date/Time: Saturday, May 28, 2016 14:02 - CONCLUSION: Moderate to severe atherosclerotic disease with occluded left external carotid artery. Consider CTA of the carotid arteries for further evaluation. Issa Velez MD Chest X-Ray 05/27/16 1208 Signed Impressions: Service Date/Time: Friday, May 27, 2016 12:14 - CONCLUSION: No acute disease. Adrián Mccollum MD Head CT 05/27/16 0000 Signed Impressions: Service Date/Time: Friday, May 27, 2016 12:52 - CONCLUSION: Normal examination for a patient of this age. Adrián Mccollum MD Neck CTA report noted and review by me; patient is stable and therefore he will be discharged home Discharge patient to home Condition on discharge: Improved Regular Diet as tolerated Ad Shauna activity Rx written:see EMS Follow-up with primary care physician in 1 week cardiology inn 1week Benedict Rodriguez MD May 29, 2016 10:08
== END 2016-05-29 11:37 | disposition home or self-care (01) ==
LOC: NEPA 11:48 → NEDA 14:37 → NEPHCDU 16:19
PROVIDERS: ADMIT Hospitalist; ATTEND Hospitalist
DX: I47.2 Ventricular tachycardia (principal); I25.5 Ischemic cardiomyopathy; Z95.1 Presence of aortocoronary bypass graft; I48.0 Paroxysmal atrial fibrillation; I34.0 Nonrheumatic mitral (valve) insufficiency; E78.5 Hyperlipidemia, unspecified; I65.29 Occlusion and stenosis of unspecified carotid artery; I10 Essential (primary) hypertension; E66.3 Overweight; W18.30XA Fall on same level, unspecified, initial encounter; Z95.810 Presence of automatic (implantable) cardiac defibrillator; Z79.01 Long term (current) use of anticoagulants; Z23 Encounter for immunization
CPT/HCPCS: 70450; 70498; 71010; 80053; 82140; 82310; 82435; 82550; 82552; 82565; 82947; 83735; 83880; 84132; 84295; 84484; 84520; 85007; 85025; 85027; 85610; 85730; 90732; 93005; 93306; 93880; 95819; 97001; 99285; G0008; G0009; G0378; G8987; G8988; J7030; Q2038; Q9967; 90471; 90472; 90686; J1644